=== PATIENT | female | born 1985 | race Caucasian/White ===

== ENCOUNTER 2019-02-06 16:21 | Emergency (ER) | payer OTHER ==
[~2019-02-06] VITALS: Ht 149.9 cm; Wt 63.0 kg
[~2019-02-06 16:21] MED LIST: HYDR-3240 PO; IBUP-1222 PO
[2019-02-06 16:42] LABS: BASOPHILS # (AUTO) 0.02 x10^3/uL (0-0.1); BASOPHILS % (AUTO) 0 % (0-1); EOSINOPHILS # (AUTO) 0.14 x10^3/uL (0-0.4); EOSINOPHILS % (AUTO) 2 % (1-7); LYMPHOCYTES # (AUTO) 1.52 x10^3/uL (1-3.4); LYMPHOCYTES % (AUTO) 21 % (22-44); MD NO; MEAN CORPUSCULAR HEMOGLOBIN 30.5 pg (27.0-34.8); MEAN CORPUSCULAR HGB CONC 33.9 g/dL (32.4-35.8); MEAN CORPUSCULAR VOLUME 89.8 fL (80-100); MEAN PLATELET VOLUME 7.8 fL (7.4-10.4); MONOCYTES % (AUTO) 8 % (2-9); NEUTROPHILS # (AUTO) 4.86 x10^3/uL (1.8-6.8); NEUTROPHILS % (AUTO) 68 % (42-75); PLATELET COUNT 324 x10^3/uL (130-400); RED BLOOD COUNT 4.76 x10^6/uL (3.82-5.3); RED CELL DISTRIBUTION WIDTH 13.5 % (9.6-15.2)
--- NOTE | 2019-02-06 16:44 | NUR ---
PT C/O VB SINCE LAST NOC WITH CLOTS. PT REPORTS HAVING US DONE ON THE 18TH OF THIS MONTH WITH SAC BEING VISUALIZED AND NOTHING ELSE. NO BETA WAS DONE PER PT DUE TO INSURANCE.
[2019-02-06 16:54] LABS: ALBUMIN 3.9 g/dL (3.4-5.0); ANION GAP 5 mmol/L (5-15); CALCIUM 8.9 mg/dL (8.5-10.1); CHLORIDE 108 mmol/L (98-107); CREATININE 0.55 mg/dL (0.55-1.02)
--- NOTE | 2019-02-06 17:05 | NUR ---
REPORT TO MANE LUCAS FOR LUNCH BREAK.
[2019-02-06] MEDS ORDERED: RHOGAM FROM BLOOD BANK 1 NOTE EA IM/IV ONE (18:30)
[2019-02-06 18:33] VITALS: BP 102/58
--- NOTE | 2019-02-06 18:50 | NUR ---
JJ PAC AT BEDSIDE TO DISCUSS US RESULTS.
--- NOTE | 2019-02-06 18:59 | NUR ---
REPORT TO MELANIE LUCAS.
[2019-02-06 19:08] VITALS: BP 103/67
== END 2019-02-06 19:43 | disposition home or self-care (01) ==
LOC: ED 19:29
DX: O03.4 Incomplete spontaneous abortion without complication (principal)
CPT/HCPCS: 36415; 76801; 80048; 82040; 84702; 85025; 86850; 86900; 99284; J2790

== ENCOUNTER 2021-02-14 16:27 | Emergency (ER) | payer OTHER ==
[~2021-02-14] VITALS: Ht 149.9 cm; Wt 57.5 kg
[~2021-02-14 16:27] MED LIST changes: +HYDR-1067 PO; -HYDR-3240 PO
[2021-02-14 17:20] LABS: MICROSCOPIC INDICATED
--- NOTE | 2021-02-14 17:38 | NUR ---
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
--- NOTE | 2021-02-14 17:42 | NUR ---
pt WALKED BACK FROM TRIAGE WITH CHIEF COMPLAINT OF VB AND CRAMPING STARTING AT 1300
[2021-02-14 18:15] LABS: BASOPHILS % (AUTO) 1 % (0-1); EOSINOPHILS % (AUTO) 2 % (1-7); LYMPHOCYTES % (AUTO) 27 % (22-44); MEAN CORPUSCULAR HEMOGLOBIN 30.4 pg (27.0-34.8); MEAN CORPUSCULAR HGB CONC 33.9 g/dL (32.4-35.8); MEAN PLATELET VOLUME 8.3 fL (7.4-10.4); MONOCYTES % (AUTO) 8 % (2-9); NEUTROPHILS % (AUTO) 63 % (42-75); PLATELET COUNT 253 x10^3/uL (130-400); RED BLOOD COUNT 4.58 x10^6/uL (3.82-5.3); RED CELL DISTRIBUTION WIDTH 13.9 % (9.6-15.2)
--- NOTE | 2021-02-14 18:15 | NUR ---
BLOOD BANK WITH CALL WHEN RHOGAM READY
[2021-02-14 18:20] LABS: MD NO
[2021-02-14 18:21] LABS: ALANINE AMINOTRANSFERASE 16 U/L (12-78); ALBUMIN 3.7 g/dL (3.4-5.0); ANION GAP 4 mmol/L (5-15); CALCIUM 8.6 mg/dL (8.5-10.1); CHLORIDE 107 mmol/L (98-107); CREATININE 0.56 mg/dL (0.55-1.02)
[2021-02-14 18:25] LABS: ALKALINE PHOSPHATASE 56 U/L (45-117); BILIRUBIN,TOTAL 0.2 mg/dL (0.2-1.0); TOTAL PROTEIN 7.6 g/dL (6.4-8.2)
--- NOTE | 2021-02-14 18:27 | NUR ---
PT TO US
--- NOTE | 2021-02-14 19:43 | NUR ---
Pt medticated per order. Double checked with Ayah LUCAS. Pt tolerated well. VSS. Will continue to monitor.
[2021-02-14 20:05] VITALS: BP 130/81
--- NOTE | 2021-02-14 20:06 | NUR ---
Patient/Caregiver given discharge instructions and they have confirmed that they understand the instructions. Patient ambulatory with steady gait.
== END 2021-02-14 20:07 | disposition home or self-care (01) ==
LOC: ED 20:00
DX: N92.0 Excessive and frequent menstruation with regular cycle (principal)
CPT/HCPCS: 36415; 36430; 76801; 80053; 81001; 84702; 85025; 86850; 86900; 99285; J2790